=== PATIENT | female | born 1955 | race Caucasian/White ===

== ENCOUNTER → 2017-06-30 | Outpatient (CLI) | payer BC ==
[~2017-06-30] MED LIST: CLXOPO OPL; PRED1SUS3 OPL; PROP10TA7 PO; THY/30 PO
--- NOTE | 2017-07-04 13:36 | MAMMOGRAPHY REPORT ---
BILATERAL DIGITAL SCREENING MAMMOGRAM TOMOSYNTHESIS WITH CAD: 06/30/2017 CLINICAL HISTORY: Routine screening. Patient has no complaints. TECHNIQUE: Breast tomosynthesis in addition to standard 2D mammography was performed. Current study was also evaluated with a Computer Aided Detection (CAD) system. COMPARISON: Comparison is made to exams dated: 06/23/2016 mammogram, 06/22/2015 mammogram, 4 mammogram - [facility], and 07/02/2008. BREAST COMPOSITION: There are scattered areas of fibroglandular density in both breasts. FINDINGS: There is a nodular 7 mm asymmetry with possible associated calcifications in the left lowe r inner quadrant, for which spot magnification views and possible breast ultrasound are recommended f or further evaluation. This may represent a cyst. The remainder of both breasts are stable compared to prior exams, without suspicious masses, calcific ations, or areas of architectural distortion noted. Other scattered bilateral benign-appearing calci fications are not significantly changed. IMPRESSION: ACR BI-RADS CATEGORY 0: INCOMPLETE EVALUATION: NEED ADDITIONAL IMAGING EVALUATION Left breast asymmetry and possible associated calcifications, for which additional imaging evaluation is recommended. The patient will be called to schedule an appointment. Approximately 10% of breast cancers are not detected with mammography. A negative mammographic report should not delay biopsy if a clinically suggestive mass is present. Blanca Huston M.D. /:06/30/2017 16:35:19 Fish Packer: Emelina Shelley, [facility] letter sent: Addl Imaging 0 BI-RADS Code: ACR BI-RADS Category 0: Incomplete Evaluation: Need Additional Imaging Evaluation
== END | disposition home or self-care (01) ==
LOC: C.MAMM 09:08
PROVIDERS: ATTEND Family Medicine
DX: Z12.31 Encounter for screening mammogram for malignant neoplasm of breast (principal); N64.89 Other specified disorders of breast

== ENCOUNTER → 2017-07-10 | Outpatient (CLI) | payer OTHER ==
--- NOTE | 2017-07-10 15:09 | MAMMOGRAPHY REPORT ---
UNILATERAL LEFT DIGITAL DIAGNOSTIC MAMMOGRAM AND TARGETED LEFT ULTRASOUND: 07/10/2017 CLINICAL HISTORY: 61-year-old woman called back from screening mammography for a 7 mm focal asymmetry with possible associated calcifications in the lower inner quadrant of the left breast. TECHNIQUE: Spot magnification left CC and ML views were obtained. COMPARISON: Comparison is made to exams dated: 06/30/2017 mammogram, 06/23/2016 mammogram, 5 mammogram, 06/24/2014 mammogram - [facility], and 07/02/2008. BREAST COMPOSITION: There are scattered areas of fibroglandular density in the left breast. FINDINGS: The spot magnification CC and ML views of the left breast demonstrate approximately 2-3 pun ctate microcalcifications in the lower inner anterior left breast. The associated focal asymmetry is less conspicuous on the spot magnification views suggesting it may represent a cyst. Further evalua tion with ultrasound was performed. Targeted ultrasound was performed in the lower inner quadrant of the left breast. In the 8:00 axis, 3 cm from the nipple, there is an oval predominantly anechoic circumscribed parallel mass measuring 5 .6 x 1.9 x 5.7 mm, with possible few internal reflectors and debris. This is most compatible with a complicated cyst and likely explains the mammographic findings. However, given that the microcalcifi cations were not definitely seen on prior mammograms, a short interval follow-up left diagnostic blaise synthesis mammogram including spot magnification views is recommended to ensure stability in 6 months . IMPRESSION: ACR-BI-RADS CATEGORY 3: PROBABLY BENIGN, TARGETED ULTRASOUND ACR-BI-RADS CATEGORY 3: PRO BABLY BENIGN The 6-7 mm focal asymmetry in the lower inner anterior left breast with few associated punctate micro calcifications most likely represents a cyst with associated internal calcification, identified in th e 8:00 left breast on ultrasound. However, the calcifications do not demonstrate definitive layering on the spot magnification ML view to confirm benign milk of calcium and therefore a short interval f ollow-up left diagnostic tomosynthesis mammogram including spot magnification views and possible repe at ultrasound is recommended to ensure stability in 6 months. These results and recommendations were discussed with the patient at the time of the exam. Approximately 10% of breast cancers are not detected with mammography. A negative mammographic report should not delay biopsy if a clinically suggestive mass is present. Karen Noonan M.D. ay/:07/10/2017 08:35:27 [employer]s Fab[employer]ator: Emelina Lamar RT(R)(M), [facility] letter sent: Follow Up Recommended 3 BI-RADS Code: ACR-BI-RADS Category 3: Probably Benign Ultrasound BI-RADS: ACR-BI-RADS Category 3: Pr obably Benign
== END | disposition home or self-care (01) ==
LOC: C.MAMM 08:09
PROVIDERS: ATTEND Family Medicine
DX: N64.89 Other specified disorders of breast (principal); R92.1 Mammographic calcification found on diagnostic imaging of breast; R92.0 Mammographic microcalcification found on diagnostic imaging of breast